=== PATIENT | male | born 1975 | race Caucasian/White ===

== ENCOUNTER 2018-05-07 07:50 | Emergency (ER) | payer SELFPAY ==
[~2018-05-07] VITALS: Ht 172.7 cm; Wt 111.3 kg
[2018-05-07 07:53] VITALS: BP 156/96
== END 2018-05-07 09:36 ==
LOC: ED 09:00
DX: Z00.00 Encounter for general adult medical examination without abnormal findings (principal); R10.13 Epigastric pain; R11.10 Vomiting, unspecified
CPT/HCPCS: 93005; 99283